=== PATIENT | male | born 1985 | race Caucasian/White ===

== ENCOUNTER 2020-11-12 14:49 | Emergency (ER) | payer BC, OTHER ==
[2020-11-12] MEDS ORDERED: Bacitracin 1 PK ONE (15:08)
== END 2020-11-12 15:15 | disposition home or self-care (01) ==
LOC: MADERS 14:49
DX: S01.01XA Laceration without foreign body of scalp, initial encounter (principal); X58.XXXA Exposure to other specified factors, initial encounter
CPT/HCPCS: 12002